=== PATIENT | male | born 1945 | race Caucasian/White ===

== ENCOUNTER 2021-06-08 10:05 | Outpatient (CLI) | payer MEDICARE, BC, SELFPAY ==
[2021-06-08 14:03] LABS: CREATININE 1.3 mg/dL (0.70-1.30); Estimated GFR 53.96 (mL/min/1.73m2)
== END 2021-06-08 10:06 | disposition home or self-care (01) ==
LOC: LBO 10:19
PROVIDERS: PCP Family Medicine; Visit Provider Preventive Medicine Undersea and Hyperbaric Medicine
DX: C09.9 Malignant neoplasm of tonsil, unspecified (principal)
CPT/HCPCS: 36415; 82565